=== PATIENT | female | born 1970 | race African-American/Black ===

== ENCOUNTER 2016-12-17 08:38 | Emergency (ER) | payer SELFPAY ==
[~2016-12-17] VITALS: Ht 175.2 cm; Wt 158.8 kg
[~2016-12-17 08:38] MED LIST: ALBUTEROL0.09 MG/A2 IH; ANUSOL-HC25 MG RC; CARISOPRODOL350 MG PO; CIPRO500 MG PO; COLACE100 MG PO; FLAGYL500 MG PO; HYDROCODONE BIT1 T11 PO; LISINOPRIL20 MG PO; MIRALAX POWDER17 G1 PO; MOTRIN800 MG PO; NEURONTIN100 MG PO; NORFLEX100 MG PO; PERCOCET; PERCOCET 325 MG1 TA2 PO; PERCOCET 650 MG1 TA1 PO; PRILOSEC10 MG PO; PRILOSEC40 MG PO; STOMACH PILL; VALIUM10 MG PO; VIBRAMYCIN100 MG PO; VICODIN 5/500 505 MG PO; XANAX0.5 MG PO; XANAX1 MG PO
[2016-12-17] MEDS ORDERED: GABAPENTIN800 MG PO (08:54)
[2016-12-17] MEDS ORDERED: VERAPAMIL HCL240 M1 PO (08:54)
[2016-12-17] MEDS ORDERED: ELIQUIS5 M1 PO (08:55)
[2016-12-17] MEDS ORDERED: OXYCODONE HCL20 M1 PO (08:55)
[2016-12-17] MEDS ORDERED: OMEPRAZOLE D/R20 MG PO (08:55)
[2016-12-17] MEDS ORDERED: CARISOPRODOL350 M1 PO (08:56)
[2016-12-17] MEDS ORDERED: ONDANSETRON ODT8 MG PO (08:56)
[2016-12-17] MEDS ORDERED: LISINOPRIL20 MG PO (08:57)
[2016-12-17 09:44] LABS: HEMOGLOBIN 12.5 g/dl (12.0-16.0); MEAN CELL VOLUME 85.2 fl (81.0-99.0); MEAN CORPUSCULAR HGB 27.3 pg (27.0-31.0); MEAN CORPUSCULAR HGB CONC 32.1 g/dl (33.0-37.0); MEAN PLATELET VOLUME 11.1 fl (9.6-12.3); PLATELET COUNT AUTOMATED 229 10*3/uL (130-400); RED BLOOD COUNT 4.58 10*6/uL (4.10-5.10); RED CELL DISTRI WIDTH 15.5 % (0-14.5); WHITE BLOOD COUNT 8.7 10*3/uL (4.8-10.8)
[2016-12-17 09:47] LABS: BILIRUBIN NEGATIVE (NEGATIVE); BLOOD NEGATIVE (NEGATIVE); CLARITY CLOUDY (CLEAR); COLOR YELLOW (YELLOW); GLUCOSE NEGATIVE (NEGATIVE); KETONE NEGATIVE (NEGATIVE); LEUKO ESTERASE 1+ (NEGATIVE); NITRITE NEGATIVE (NEGATIVE); PH 7.5 (5.0-9.0); PROTEIN NEGATIVE (NEGATIVE); SPECIFIC GRAVITY 1.015 (1.005-1.030); UROBILINOGEN 0.2 E.U./dl (0.2-1.0)
[2016-12-17 10:07] LABS: ALBUMIN 3.7 gm/dl (3.1-4.5); ALKALINE PHOSPHATASE 41 U/L (45-117); BILIRUBIN, TOTAL 0.5 mg/dl (0.2-1.0); BUN 11 mg/dl (7-24); CARBON DIOXIDE 28 mmol/L (21-32); CHLORIDE 104 mmol/L (98-107); EST GLOM FILT AFRICAN AMERICAN > 60 ml/min; GLUCOSE 85 mg/dL (65-99); POTASSIUM 4.1 mmol/L (3.5-5.1); SGOT/AST 11 IU/L (3-35); SGPT/ALT 19 U/L (12-78); SODIUM 140 mmol/L (136-145); TOTAL PROTEIN 7.7 gm/dL (6.4-8.2)
[2016-12-17 10:15] LABS: BASOPHIL # 0.3 10*3/uL (0-0.1); BASOPHILS 3 % (0-1); EOSINOPHIL # 0.1 10*3/uL (0-0.4); EOSINOPHILS 1 % (1-4); LYMPHOCYTE # 2.7 10*3/uL (1.3-4.4); MONOCYTE # 0.3 10*3/uL (0.1-1.0); NEUTROPHIL # 5.3 10*3/uL (2.3-7.9); NEUTROPHILS 61 % (47-73); PLATELET SUFFICIENCY NORMAL (NORMAL); TOTAL CELLS COUNTED 100 #CELLS
[2016-12-17 10:19] LABS: BACTERIA 2+; EPITHELIAL CELLS 25-35; URINE REFLEX COMMENT YES (NO); WBC 16-20 wbc/hpf (0-5)
[2016-12-17] MEDS ORDERED: MACROBID100 M1 PO (12:28)
== END 2016-12-17 11:20 | disposition home or self-care (01) ==
LOC: ED 08:38
PROVIDERS: Registered Nurse
DX: N30.00 Acute cystitis without hematuria (principal); I10 Essential (primary) hypertension; Z88.5 Allergy status to narcotic agent; Z91.040 Latex allergy status; Z86.718 Personal history of other venous thrombosis and embolism

== ENCOUNTER 2020-07-24 14:13 | Emergency (ER) | payer OTHER ==
[~2020-07-24 14:13] MED LIST changes: +CARISOPRODOL350 M1 PO; +ELIQUIS5 M1 PO; +GABAPENTIN800 MG PO; +MACROBID100 M1 PO; +OMEPRAZOLE D/R20 MG PO; +ONDANSETRON ODT8 MG PO; +OXYCODONE HCL20 M1 PO; +VERAPAMIL HCL240 M1 PO
[2020-07-24 15:08] LABS: BASO # 0.1 10*3/uL (0.0-0.1); BASO % 0.6 % (0.0-1.0); EOS # 0.1 10*3/uL (0.0-0.4); EOS % 0.8 % (1.0-4.0); HEMATOCRIT 37.6 % (37.0-47.0); LYMPH # 3.2 10*3/uL (1.3-4.4); LYMPH % 26.9 % (27.0-41.0); MEAN CORPUSCULAR HGB 27.8 pg (27.0-31.0); MEAN CORPUSCULAR HGB CONC 31.9 g/dl (33.0-37.0); MEAN PLATELET VOLUME 11.5 fl (9.6-12.3); MONO # 0.9 10*3/uL (0.1-1.0); MONO % 7.3 % (3.0-9.0); NEUT # 7.6 10*3/uL (2.3-7.9); PLATELET COUNT AUTOMATED 239 10*3/uL (130-400); RED BLOOD COUNT 4.32 10*6/uL (4.10-5.10); RED CELL DISTRI WIDTH 16.5 % (0-14.5); WHITE BLOOD COUNT 11.8 10*3/uL (4.8-10.8)
[2020-07-24 15:21] LABS: ACT PARTIAL THROMBO TIME 22.8 SECONDS (20.0-32.1); INTERNATIONAL NORM RATIO 0.9 (2.0-3.5)
[2020-07-24 15:24] LABS: ACETAMINOPHEN (TYLENOL) < 5.0 ug/ml (10-30); ALBUMIN 3.5 gm/dl (3.1-4.5); ALKALINE PHOSPHATASE 48 U/L (45-117); BETA-HCG, QUANT < 1.0 mIU/mL (1-3); BUN 11 mg/dl (7-24); CHLORIDE 109 mmol/L (98-107); CREATININE 1.15 mg/dL (0.55-1.02); LIPASE 54 U/L (73-393); POTASSIUM 3.5 mmol/L (3.5-5.1); SGOT/AST 15 IU/L (3-35); SGPT/ALT 19 U/L (12-78); SODIUM 140 mmol/L (136-145); TOTAL PROTEIN 7.7 gm/dL (6.4-8.2); TROPONIN I < 0.015 ng/ml (<0.045)
[2020-07-24 15:29] LABS: ETHYL ALCOHOL < 3.0 mg/dl (<3)
[2020-07-24 16:52] LABS: BILIRUBIN NEGATIVE; BLOOD NEGATIVE (NEGATIVE); CLARITY CLEAR (CLEAR); COLOR YELLOW (YELLOW); GLUCOSE NEGATIVE; KETONE NEGATIVE; LEUKO ESTERASE NEGATIVE (NEGATIVE); NITRITE NEGATIVE (NEGATIVE); SPECIFIC GRAVITY 1.015 (1.001-1.030); UROBILINOGEN 0.2 E.U./dl (0.0-1.0)
[2020-07-24 16:54] LABS: RBC 0-2 rbc/hpf (0-2)
[2020-07-24 16:55] LABS: BACTERIA 2+; URINE AMPHETAMINES < 1000 (1000ng/ml); URINE BARBITURATES < 200 (200ng/ml); URINE BENZODIAZEPINES < 200 (200ng/ml); URINE CANNABINOIDS (THC) > 50 (50ng/ml); URINE COCAINE < 300 (300ng/ml); URINE METHADONE < 300 (300ng/ml); URINE OPIATES < 300 (300ng/ml)
[2020-07-24 16:56] LABS: URINE PHENCYCLIDINE < 25 (25ng/ml)
== END 2020-07-24 17:10 | disposition left against medical advice (07) ==
LOC: ED 14:13
PROVIDERS: Emergency Medicine
DX: R42 Dizziness and giddiness (principal); F17.200 Nicotine dependence, unspecified, uncomplicated; Z79.899 Other long term (current) drug therapy; Z91.040 Latex allergy status; Z88.5 Allergy status to narcotic agent

== ENCOUNTER 2023-01-23 09:56 | Emergency (ER) | payer OTHER ==
[2023-01-23 12:02] LABS: BASO # 0.1 10*3/uL (0.0-0.1); BASO % 1.1 % (0.0-1.0); EOS # 0.2 10*3/uL (0.0-0.4); EOS % 1.8 % (1.0-4.0); HEMATOCRIT 38.8 % (37.0-47.0); LYMPH % 30.6 % (27.0-41.0); MEAN CELL VOLUME 88.4 fl (81.0-99.0); MEAN CORPUSCULAR HGB 28.7 pg (27.0-31.0); MEAN CORPUSCULAR HGB CONC 32.5 g/dl (33.0-37.0); MEAN PLATELET VOLUME 10.6 fl (9.6-12.3); MONO # 0.8 10*3/uL (0.1-1.0); MONO % 8.5 % (3.0-9.0); NEUT # 5.6 10*3/uL (2.3-7.9); NEUT % 57.5 % (47.0-73.0); PLATELET COUNT AUTOMATED 259 10*3/uL (130-400); RED BLOOD COUNT 4.39 10*6/uL (4.10-5.10); RED CELL DISTRI WIDTH 16.2 % (0-14.5); WHITE BLOOD COUNT 9.7 10*3/uL (4.8-10.8)
[2023-01-23 12:23] LABS: ALKALINE PHOSPHATASE 37 U/L (46-116); BUN 5 mg/dl (9-23); CHLORIDE 100 mmol/L (98-107); SGPT/ALT 15 U/L (10-49); TOTAL PROTEIN 7.6 gm/dL (6.0-8.0)
[2023-01-23] MEDS ORDERED: OXYCODONE HCL10 M1 PO (13:15)
[2023-01-23] MEDS ORDERED: VALIUM2 MG PO (13:15)
[2023-01-23] MEDS ORDERED: [UNRECOGNIZED DRUG - SUPPLY] MC (13:35)
[2023-01-23] MEDS ORDERED: [UNRECOGNIZED DRUG - SUPPLY] MC (13:35)
== END 2023-01-23 13:22 | disposition home or self-care (01) ==
LOC: ED 09:56
PROVIDERS: Internal Medicine
DX: F41.9 Anxiety disorder, unspecified (principal); M25.552 Pain in left hip; K21.9 Gastro-esophageal reflux disease without esophagitis; I10 Essential (primary) hypertension; M79.7 Fibromyalgia; Z88.8 Allergy status to other drugs, medicaments and biological substances; Z91.040 Latex allergy status

== ENCOUNTER 2023-03-11 10:17 | Emergency (ER) | payer OTHER ==
[~2023-03-11 10:17] MED LIST changes: +OXYCODONE HCL10 M1 PO; +VALIUM2 MG PO; +[UNRECOGNIZED DRUG - SUPPLY] MC; +[UNRECOGNIZED DRUG - SUPPLY] MC
== END 2023-03-11 11:30 | disposition home or self-care (01) ==
LOC: ED 10:17
DX: S83.8X2A Sprain of other specified parts of left knee, initial encounter (principal); Z91.040 Latex allergy status; Z88.8 Allergy status to other drugs, medicaments and biological substances; Z79.899 Other long term (current) drug therapy; Y08.89XA Assault by other specified means, initial encounter; Y93.89 Activity, other specified; Y92.89 Other specified places as the place of occurrence of the external cause; Y99.8 Other external cause status

== ENCOUNTER 2023-03-24 10:15 | Inpatient (IN) | payer OTHER ==
[~2023-03-24] VITALS: Ht 175.2 cm; Wt 186.0 kg
[2023-03-24 10:44] VITALS: BP 121/73
[2023-03-24 10:50] LABS: BASO # 0.1 10*3/uL (0.0-0.1); BASO % 0.9 % (0.0-1.0); EOS # 0.1 10*3/uL (0.0-0.4); EOS % 0.7 % (1.0-4.0); HEMATOCRIT 37.1 % (37.0-47.0); LYMPH % 28.4 % (27.0-41.0); MEAN CELL VOLUME 89.6 fl (81.0-99.0); MEAN CORPUSCULAR HGB 29.5 pg (27.0-31.0); MEAN CORPUSCULAR HGB CONC 32.9 g/dl (33.0-37.0); MEAN PLATELET VOLUME 10.7 fl (9.6-12.3); MONO # 0.8 10*3/uL (0.1-1.0); MONO % 7.4 % (3.0-9.0); NEUT # 6.6 10*3/uL (2.3-7.9); PLATELET COUNT AUTOMATED 301 10*3/uL (130-400); RED BLOOD COUNT 4.14 10*6/uL (4.10-5.10); WHITE BLOOD COUNT 10.7 10*3/uL (4.8-10.8)
[2023-03-24 11:00] LABS: ACT PARTIAL THROMBO TIME 25.6 SECONDS (20.0-32.1)
[2023-03-24 11:10] LABS: ALKALINE PHOSPHATASE 35 U/L (46-116); BUN 8 mg/dl (9-23); CHLORIDE 106 mmol/L (98-107); LIPASE 25 U/L (12-53); POTASSIUM 3.3 mmol/L (3.4-5.1); SGPT/ALT 23 U/L (10-49); TOTAL PROTEIN 7.4 gm/dL (6.0-8.0)
[2023-03-24 12:37] VITALS: BP 134/77
[2023-03-24 16:45] VITALS: BP 149/70
[2023-03-24] MEDS ORDERED: BUSPIRONE10 MG PO (19:49)
[2023-03-24] MEDS ORDERED: SOMA350 MG PO (19:50)
[2023-03-24] MEDS ORDERED: TYLENOL EXTRA500 MG PO (19:54)
[2023-03-24] MEDS ORDERED: BENADRYL ALLERG25 M5 PO (19:55)
[2023-03-24 20:00] VITALS: BP 147/73
[2023-03-24] MEDS ORDERED: ROPINIROLE HCL5 MG PO (20:22)
[2023-03-25] VITALS: BP 132/68
[2023-03-25 06:25] LABS: ALKALINE PHOSPHATASE 35 U/L (46-116); BUN 11 mg/dl (9-23); CHLORIDE 107 mmol/L (98-107); POTASSIUM 4.2 mmol/L (3.4-5.1); SGPT/ALT 22 U/L (10-49); TOTAL PROTEIN 6.7 gm/dL (6.0-8.0)
[2023-03-25 06:31] LABS: BASO # 0.1 10*3/uL (0.0-0.1); BASO % 0.4 % (0.0-1.0); HEMATOCRIT 35.8 % (37.0-47.0); LYMPH # 1.5 10*3/uL (1.3-4.4); LYMPH % 12.2 % (27.0-41.0); MEAN CELL VOLUME 89.3 fl (81.0-99.0); MEAN CORPUSCULAR HGB 28.7 pg (27.0-31.0); MEAN CORPUSCULAR HGB CONC 32.1 g/dl (33.0-37.0); MEAN PLATELET VOLUME 11.6 fl (9.6-12.3); MONO # 0.6 10*3/uL (0.1-1.0); NEUT # 10.1 10*3/uL (2.3-7.9); PLATELET COUNT AUTOMATED 302 10*3/uL (130-400); RED BLOOD COUNT 4.01 10*6/uL (4.10-5.10); RED CELL DISTRI WIDTH 15.9 % (0-14.5); WHITE BLOOD COUNT 12.5 10*3/uL (4.8-10.8)
[2023-03-25 08:00] VITALS: BP 139/62
[2023-03-25 12:00] VITALS: BP 128/63
[2023-03-25 16:00] VITALS: BP 141/66
[2023-03-25 20:00] VITALS: BP 151/61
[2023-03-26] VITALS: BP 124/52
[2023-03-26 06:36] LABS: BASO % 0.2 % (0.0-1.0); EOS % 0.1 % (1.0-4.0); LYMPH # 1.8 10*3/uL (1.3-4.4); LYMPH % 12.3 % (27.0-41.0); MEAN CELL VOLUME 90.5 fl (81.0-99.0); MEAN CORPUSCULAR HGB 28.4 pg (27.0-31.0); MEAN CORPUSCULAR HGB CONC 31.4 g/dl (33.0-37.0); MEAN PLATELET VOLUME 12.3 fl (9.6-12.3); MONO # 0.8 10*3/uL (0.1-1.0); MONO % 5.6 % (3.0-9.0); NEUT # 11.6 10*3/uL (2.3-7.9); NEUT % 80.6 % (47.0-73.0); PLATELET COUNT AUTOMATED 278 10*3/uL (130-400); RED BLOOD COUNT 3.98 10*6/uL (4.10-5.10); RED CELL DISTRI WIDTH 16.1 % (0-14.5); WHITE BLOOD COUNT 14.3 10*3/uL (4.8-10.8)
[2023-03-26 07:00] LABS: BUN 11 mg/dl (9-23); CHLORIDE 104 mmol/L (98-107); POTASSIUM 4.7 mmol/L (3.4-5.1)
[2023-03-26 08:00] VITALS: BP 130/69
[2023-03-26 12:00] VITALS: BP 130/59
[2023-03-26 16:00] VITALS: BP 129/64
[2023-03-26 20:00] VITALS: BP 143/69
[2023-03-27] VITALS: BP 149/81
[2023-03-27 06:13] LABS: BASO % 0.2 % (0.0-1.0); HEMATOCRIT 37.4 % (37.0-47.0); LYMPH # 1.9 10*3/uL (1.3-4.4); LYMPH % 11.9 % (27.0-41.0); MEAN CELL VOLUME 90.6 fl (81.0-99.0); MEAN CORPUSCULAR HGB 28.8 pg (27.0-31.0); MEAN CORPUSCULAR HGB CONC 31.8 g/dl (33.0-37.0); MEAN PLATELET VOLUME 11.4 fl (9.6-12.3); MONO # 0.8 10*3/uL (0.1-1.0); MONO % 5.4 % (3.0-9.0); NEUT # 12.7 10*3/uL (2.3-7.9); NEUT % 81.3 % (47.0-73.0); PLATELET COUNT AUTOMATED 324 10*3/uL (130-400); RED BLOOD COUNT 4.13 10*6/uL (4.10-5.10); RED CELL DISTRI WIDTH 16.1 % (0-14.5); WHITE BLOOD COUNT 15.6 10*3/uL (4.8-10.8)
[2023-03-27 08:00] VITALS: BP 135/62
[2023-03-27 08:19] LABS: BUN 12 mg/dl (9-23); CHLORIDE 100 mmol/L (98-107); POTASSIUM 4.5 mmol/L (3.4-5.1)
[2023-03-27] MEDS ORDERED: VITAMIN D325 MCG PO (09:57)
[2023-03-27] MEDS ORDERED: ZITHROMAX500 MG PO (09:57)
[2023-03-27] MEDS ORDERED: PREDNISONE10 MG PO (09:57)
[2023-03-27] MEDS ORDERED: ATIVAN0.5 MG PO (10:04)
== END 2023-03-27 11:45 | disposition home or self-care (01) | DRG 140 ==
LOC: ED 10:15 → 4E 11:35 → EDHOLD 11:35 → 4E 16:16
PROVIDERS: Emergency Medicine; Family Medicine; Student in an Organized Health Care Education/Training Program; ADMIT Internal Medicine; ATTEND Internal Medicine
DX: J44.1 Chronic obstructive pulmonary disease with (acute) exacerbation (principal); E87.6 Hypokalemia; K21.9 Gastro-esophageal reflux disease without esophagitis; I10 Essential (primary) hypertension; G62.9 Polyneuropathy, unspecified; F17.200 Nicotine dependence, unspecified, uncomplicated; Z71.6 Tobacco abuse counseling; Z90.49 Acquired absence of other specified parts of digestive tract; Z98.51 Tubal ligation status; Z88.5 Allergy status to narcotic agent; Z91.040 Latex allergy status; Z79.899 Other long term (current) drug therapy